=== PATIENT | male | born 1995 | race Asian ===

== ENCOUNTER 2017-12-03 14:48 | Emergency (ER) | payer BC ==
[~2017-12-03] VITALS: Ht 172.7 cm; Wt 104.3 kg
[2017-12-03 15:15] LABS: PLATELET COUNT 223 K/uL (142-355)
[2017-12-03 15:27] LABS: POTASSIUM 3.5 mmol/L (3.6-5.2)
== END 2017-12-03 16:43 | disposition home or self-care (01) ==
LOC: ED 14:48
DX: E10.65 Type 1 diabetes mellitus with hyperglycemia (principal)
CPT/HCPCS: 36415; 80053; 80307; 81000; 82962; 83036; 85027; 96372; 99283; J1815